=== PATIENT | female | born 1985 | race Caucasian/White ===

== ENCOUNTER 2017-01-12 18:08 | Inpatient (IN) | payer OTHER ==
[~2017-01-12] VITALS: Ht 170.1 cm; Wt 68.2 kg
[2017-01-12] MEDS ORDERED: CITALOPRAM HYDR40 MG PO (18:19)
[2017-01-12] MEDS ORDERED: GABAPENTIN400 MG PO (18:19)
[2017-01-12 18:22] VITALS: BP 135/86
[2017-01-12 19:02] LABS: URINE AMPHETAMINES < 1000 (1000ng/ml); URINE BARBITURATES < 200 (200ng/ml); URINE BENZODIAZEPINES < 200 (200ng/ml); URINE CANNABINOIDS (THC) < 50 (50ng/ml); URINE COCAINE < 300 (300ng/ml); URINE METHADONE < 300 (300ng/ml); URINE OPIATES > 300 (300ng/ml)
[2017-01-12 19:03] LABS: URINE PHENCYCLIDINE < 25 (25ng/ml)
[2017-01-12 19:45] LABS: BILIRUBIN NEGATIVE (NEGATIVE); BLOOD NEGATIVE (NEGATIVE); CLARITY SL CLOUDY (CLEAR); COLOR YELLOW (YELLOW); GLUCOSE NEGATIVE (NEGATIVE); KETONE NEGATIVE (NEGATIVE); LEUKO ESTERASE NEGATIVE (NEGATIVE); NITRITE NEGATIVE (NEGATIVE); PH 5.5 (5.0-9.0); SPECIFIC GRAVITY >= 1.030 (1.005-1.030); UROBILINOGEN 0.2 E.U./dl (0.2-1.0)
[2017-01-12 19:53] LABS: BACTERIA 3+; MUCOUS 2+
[2017-01-12 20:27] LABS: BASO # 0.1 10*3/uL (0.0-0.1); BASO % 0.5 % (0.0-1.0); EOS # 0.2 10*3/uL (0.0-0.4); HEMATOCRIT 40.9 % (37.0-47.0); HEMOGLOBIN 13.6 g/dl (12.0-16.0); LYMPH # 3.6 10*3/uL (1.3-4.4); LYMPH % 38.4 % (27.0-41.0); MEAN CELL VOLUME 88.9 fl (81.0-99.0); MEAN CORPUSCULAR HGB 29.6 pg (27.0-31.0); MEAN CORPUSCULAR HGB CONC 33.3 g/dl (33.0-37.0); MEAN PLATELET VOLUME 9.8 fl (9.6-12.3); MONO # 0.9 10*3/uL (0.1-1.0); MONO % 9.5 % (3.0-9.0); NEUT # 4.6 10*3/uL (2.3-7.9); NEUT % 49.2 % (47.0-73.0); PLATELET COUNT AUTOMATED 213 10*3/uL (130-400); RED CELL DISTRI WIDTH 13.1 % (0-14.5); WHITE BLOOD COUNT 9.4 10*3/uL (4.8-10.8)
[2017-01-12 20:30] VITALS: BP 135/86
[2017-01-12 20:47] LABS: ALBUMIN 3.5 gm/dl (3.1-4.5); ALKALINE PHOSPHATASE 76 U/L (45-117); BUN 10 mg/dl (7-24); CHLORIDE 106 mmol/L (98-107); CREATININE 0.75 mg/dL (0.55-1.02); POTASSIUM 4.1 mmol/L (3.5-5.1); SGOT/AST 26 IU/L (3-35); SGPT/ALT 41 U/L (12-78); SODIUM 134 mmol/L (136-145); TOTAL PROTEIN 8.3 gm/dL (6.4-8.2)
[2017-01-12 20:52] LABS: BETA-HCG, QUANT < 1.0 mIU/mL (1-3); ETHYL ALCOHOL < 3.0 mg/dl (<3)
--- NOTE | 2017-01-12 20:54 | NUR ---
CALLED DR ELAINE MADE HIM AWARE PATIENT IS ON FLOOR AND WAS REQUESTING HER HOME MEDICATION OF GABAPENTIN 400 MG BE CONTINUED PATIENT STATED "THE [facility]ISTRIL JUST DOESN'T DO IT FOR ME" MEDICATION COULD NOT BE VERIFIED WITH PATIENTS PHARMACY SINCE PATIENT JUST ARRIVED ON THE FLOOR. DR DENSON SAID HE WOULD TAKE CARE OF IT.
--- NOTE | 2017-01-12 20:57 | NUR ---
PATIENT ARRIVED TO FLOOR AT 2030 ADMITTED FOR CHEMICAL DEPENDENCY. PATIENT HAS COMPLAINTS OF ANXIETY AT THIS TIME SHE STATES SHE HAS NOT HAD ANY OF HER MEDICATION TODAY. DURING THE ADMISSION PATIENT ALSO HAD COMPLAINTS OF RESTLESS LEGS AND CRAMPING REQUESTING PRN MEDICATIONS WHEN ADMISSION IS COMPLETE
--- NOTE | 2017-01-12 22:36 | NUR ---
MARK RESTING IN BED CALL LIGHT IN REACH SEE SHIFT ASSESSMENT
[2017-01-13] VITALS: BP 111/67
[2017-01-13 08:00] VITALS: BP 120/78
[2017-01-13 12:00] VITALS: BP 132/91
--- NOTE | 2017-01-13 16:15 | NUR ---
D/C PLANNING: PATIENT IS GOING TO [facility] FOR THE VIVITROL SHOT FOR HER AFTERCARE PLAN. YEN PATRICIO B.A. BAR PILOT
--- NOTE | 2017-01-13 16:26 | NUR ---
PT LEFT AMA ALL INTERESTED PARTIES NOTIFIED
== END 2017-01-13 16:15 | disposition left against medical advice (07) | DRG 894 ==
LOC: ED 18:08 → 5E 19:06 → EDHOLD 19:06 → 5E 20:09
PROVIDERS: Nurse Practitioner Family; ADMIT Internal Medicine
DX: F11.23 Opioid dependence with withdrawal (principal); E87.1 Hypo-osmolality and hyponatremia; F33.9 Major depressive disorder, recurrent, unspecified; F13.239 Sedative, hypnotic or anxiolytic dependence with withdrawal, unspecified; G25.81 Restless legs syndrome; F19.982 Other psychoactive substance use, unspecified with psychoactive substance-induced sleep disorder; R61 Generalized hyperhidrosis; Z53.21 Procedure and treatment not carried out due to patient leaving prior to being seen by health care provider; R82.71 Bacteriuria; F41.1 Generalized anxiety disorder; F17.210 Nicotine dependence, cigarettes, uncomplicated; Z88.0 Allergy status to penicillin; Z79.899 Other long term (current) drug therapy; Z80.9 Family history of malignant neoplasm, unspecified; Z86.19 Personal history of other infectious and parasitic diseases; Z71.6 Tobacco abuse counseling